=== PATIENT | male | born 1970 ===

== ENCOUNTER 2019-05-12 07:41 | Observation (INO) | payer OTHER ==
[2019-05-12] VITALS (13 sets, daily range): BP systolic 125–161; BP diastolic 78–111
[~2019-05-12] VITALS: Ht 175.3 cm; Wt 83.9 kg
[~2019-05-12 07:41] MED LIST: Chloraseptic Spray 20mL Bottle ORAL PRN; Dexamethasone 20mg/5ml IVP SCH; NKM; ceFAZolin sod 1 GM in NS 55 ML IVPB ONE
[2019-05-12] MEDS ORDERED: Hydromorphone 0.5mg/0.5ml inj SUBQ PRN (08:30)
[2019-05-12] MEDS ORDERED: Morphine Sulfate 2mg/ml Inj(IV/IM USE ONLY) IM PRN (08:30)
[2019-05-12] MEDS ORDERED: HYDROcodone/Acetamin 5/325 tab ORAL PRN ×2 (08:30→09:15)
[2019-05-12] MEDS ORDERED: LR 1000ml 1,000 ML IVLG SCH (09:01)
--- NOTE | 2019-05-12 09:04 | Anethesia Preoperative Eval ---
Anesthesia Pre-op PMH/ROS General Date of Evaluation: May 12, 2019 Time of Evaluation: 10:13 Anesthesiologist: Ron ASA Score: ASA 2 Mallampati Score Class I : Soft palate, uvula, fauces, pillars visible Class II: Soft palate, uvula, fauces visible Class III: Soft palate, base of uvula visible Class IV: Only hard plate visible Mallampati Classification: Class II Surgeon: Marcia Diagnosis: Neck Pain Surgical Procedure: ACDF C6-7 Anesthesia History: none Family History: no anesthesia problems Allergies: Uncoded Allergies: eggplant (Allergy, Intermediate, "eyes gets watery and red", 05/12/19) Medications: see eMAR Patient NPO?: Yes Past Medical History Cardiovascular: Reports: HTN Anesthesia Pre-op Phys. Exam Physician Exam Last Vital Signs Date Time Temp Pulse Resp B/P (MAP) Pulse Ox O2 Delivery O2 Flow Rate FiO2 05/12/19 08:36 Room Air 05/12/19 08:16 97.8 89 18 150/88 99 Constitutional: NAD Neurologic: CN 2-12 intact Cardiovascular: RRR Respiratory: CTA Gastrointestinal: S/NT/ND Airway Exam Mallampati Score: Class II MO: full ROM: limited Teeth: missing, intact Anesthesia Pre-op A/P Risk Assessment & Plan Assessment: ASA 2 Plan: GA, SED, GlideScope Go Status Change Before Surgery: No Pre-Antibiotics Dru grams Ancef IV Given Within 1 Hr of Incision: Yes Time Given: 10:41 Junior Velasquez MD May 12, 2019 09:04
--- NOTE | 2019-05-12 09:05 | Immediate Post-Op Evaluation ---
Immediate Post-Op Evalulation Immediate Post-Op Evalulation Procedure: ACDF C6-7 Date of Evaluation: May 12, 2019 Time of Evaluation: 13:35 IV Fluids: 900 LR Blood Products: 0 Estimated Blood Loss: 50 Urinary Output: 0 Blood Pressure Systolic: 158 Blood Pressure Diastolic: 102 Pulse Rate: 82 Respiratory Rate: 16 O2 Sat by Pulse Oximetry: 100 Temperature (Fahrenheit): 98.2 Pain Score (1-10): 2 Nausea: No Vomiting: No Complications 0 Patient Status: awake, reacts, patent, extubated, none Hydration Status: adequate Dru grams Ancef IV Given Within 1 Hr of Incision: Yes Time Given: 10:41 Junior Velasquez MD May 12, 2019 09:05
[2019-05-12] MEDS ORDERED: Acetaminophen (Non formulary) 100 ML IV ONE (09:15)
[2019-05-12] MEDS ORDERED: DiphenhydrAMINE 50mg/ml Inj IVP PRN (09:15)
[2019-05-12] MEDS ORDERED: Hydromorphone 0.5mg/0.5ml inj IVP PRN (09:15)
[2019-05-12] MEDS ORDERED: Meperidine 50mg/ml Inj(FOR RIGORS ONLY) IVP PRN (09:15)
[2019-05-12] MEDS ORDERED: Midazolam 2mg/2ml Inj IVP PRN (09:15)
[2019-05-12] MEDS ORDERED: Atropine Sulfate 0.4mg/ml inj IVP PRN (09:15)
[2019-05-12] MEDS ORDERED: fentaNYL 100 mcg/2 mL IV PRN (09:15)
[2019-05-12] MEDS ORDERED: Ketorolac 30mg Inj IV PRN ×2 (09:15)
[2019-05-12] MEDS ORDERED: oxyCODONE HCL/Acetaminophen 5/325mg ORAL PRN (09:15)
[2019-05-12] MEDS ORDERED: LORazepam Inj 2mg/ml 1ml IV PRN (09:15)
[2019-05-12] MEDS ORDERED: HYDROcodone/Acetamin 7.5/325 tab ORAL PRN (09:15)
[2019-05-12] MEDS ORDERED: fentaNYL 100 mcg/2 mL IV ONE ×2 (09:18→11:25)
[2019-05-12] MEDS ORDERED: Propofol 1,000mg/ 100ml btl IV ONE (09:30)
[2019-05-12] MEDS ORDERED: Sodium Chloride 10ml vial INJ ONE (09:34)
[2019-05-12] MEDS ORDERED: Dexamethasone 4mg/ml vial ONE (09:34)
[2019-05-12] MEDS ORDERED: Lidocaine 1% MPF 10mg/ml 5ml ONE (09:34)
--- NOTE | 2019-05-12 09:38 | Pre-Procedure Note/Attestation ---
Pre-Procedure Note/Attestation Complete Prior to Procedure Procedure Narrative: ACDF C6-C7 anterior plate C6-C7 Indications for Procedure Pre-Operative Diagnosis: trauma cervical discogenic spondylotic myeloradiculopathy Attestation I attest that I discussed the nature of the procedure; its benefits; risks and complications; and alternatives (and the risks and benefits of such alternatives ), prior to the procedure, with the patient (or the patient's legal sales utility representative). I attest that, if there was a reasonable possibility of needing a blood transfusion, the patient (or the patient's legal sales utility representative) was given the [facility] standardized written summary, pursuant to the [place] Blood Safety Act ([place] Health and Safety Code # 1645, as amended). I attest that I re-evaluated the patient just prior to the surgery and that there has been no change in the patient's H&P, except as documented below: Stef Kennedy MD May 12, 2019 09:38
[2019-05-12] MEDS ORDERED: Lidocaine 1% Plain 30 ml INJ ONE (09:39)
[2019-05-12] MEDS ORDERED: Bacitracin 50000 Units Vial ONE (09:59)
[2019-05-12] MEDS ORDERED: Gelfoam Size TOPIC ONE (09:59)
[2019-05-12] MEDS ORDERED: Thrombin 5000 units TOPIC ONE (09:59)
[2019-05-12] MEDS ORDERED: Neostigmine 1mg/ml 10ml Inj ONE (10:00)
[2019-05-12] MEDS ORDERED: Sterile Water Irrig 1000ml IRRIG ONE (10:00)
[2019-05-12] MEDS ORDERED: LR 1000ml ONE (10:00)
[2019-05-12] MEDS ORDERED: Rocuronium Bromide 50mg/5ml Inj IV ONE (10:05)
[2019-05-12] MEDS ORDERED: NS Irrig 1000ml IRRIG ONE (10:30)
[2019-05-12] MEDS ORDERED: Glycopyrrolate 0.2mg/ml 1ml Vial ONE (12:35)
[2019-05-12] MEDS ORDERED: Naloxone 0.4mg/ml Inj IVP PRN (13:15)
[2019-05-12] MEDS ORDERED: Chloraseptic Spray 20mL Bottle ORAL ONE (15:00)
[2019-05-12] MEDS ORDERED: D5 1/2NS 1,000 ML IV SCH (15:04)
--- NOTE | 2019-05-12 15:06 | NUR ---
NURSE NOTES: Patient is alert and oriented. Patient s/p ACDF c6-7. Report received from Julisa Calderon RN. Vital signs stable. Dressing is intact. No reports of pain at the moment. Neuro check done. Side rails upx2, bed is locked, and call light is within reach. Will continue to monitor.
--- NOTE | 2019-05-12 15:50 | Diagnostic Imaging Report ---
INDICATION: Pain, intraoperative TECHNIQUE: Intraoperative imaging Fluoroscopy time: 15.7 seconds Total dose: [id number] mGym2 Total number of images: 4 COMPARISON: None FINDINGS: Lateral localizer image demonstrates surgical tool projected at the anterior aspect of the C6-7 disc. Subsequent images demonstrate anterior fusion hardware and disc spacer at C6-7. IMPRESSION: Intraoperative imaging, as described
[2019-05-12] MEDS ORDERED: ceFAZolin sod 1 GM in D5W 55 ML IV SCH (18:30)
--- NOTE | 2019-05-12 18:54 | NUR ---
NURSE NOTES: Patient voided and ambulated down hallway with RN.
--- NOTE | 2019-05-12 19:31 | NUR ---
NURSE NOTES: Received report & pt from JOHN Castrejon. Pt lying in bed, a&ox4, in room air. No s/s of acute distress & no c/o pain. Surgical dressing C/D/I. Pt to be D/C'd home tonight. Pt about to get ready & dressud up. D/C paperwork already signed & given by AM shift. IV already D/C'd by AM shift. Will assist in dressing pt/
--- NOTE | 2019-05-12 19:35 | NUR ---
NURSE NOTES: Patient has discharge to Home. Discharge instructions given to patient. IV removed. Patient stable. Hand off given to JOHN Rodriguez
[2019-05-12] MEDS ORDERED: Tubing IV Secondary IV ONE (19:39)
[2019-05-12] MEDS ORDERED: D5 1/2NS 1000ml IV ONE (19:39)
--- NOTE | 2019-05-12 19:39 | NUR ---
DISCHARGE NOTE: Pt D/C'd to home as ordered by MD. Belongings checked & accounted for. Accompanied by family member & staff downstairs via wheelchair; going via private vehicle. No pain. a&ox4.
--- NOTE | 2019-05-13 11:54 | Operative Note - Dictated ---
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 PROCEDURE: 1. ACDF C6-C7 with anterior internal plate fixation. 2. Intraoperative fluoroscopy interpreted by surgeon. 3. SSEP monitoring. 4. High-power microscopic dissection. SURGEON: Stef Kennedy, PhD, M.Pasquale. CHIEF SCHOOL FINANCE OFFICER: SAMY Moyer. ANESTHESIOLOGIST: Junior Velasquez M.D. ANESTHESIA: General with intubation. ESTIMATED BLOOD LOSS: Minimal. COMPLICATIONS: None. POSTOPERATIVE CONDITION: Good/stable. PROCEDURE IN DETAIL: The patient was brought to the operating room and in the supine position, general anesthesia intubation was induced. IV antibiotics and IV Decadron were administered 30 minutes prior to incision time. After appropriate positioning, decision for incision level placement was undertaken with fluoroscopic guidance. Level on the skin was done with a sterile skin marker marked appropriately left transverse with subsequent sterile prep and draped free in usual sterile fashion. A transverse incision as marked was sharply placed through dermis and epidermis. Electrocautery dissection was carried through the subcutaneous tissue to the level of the platysmas muscle, was identified, isolated, and transected in line with the incision. Blunt dissection was carried medial to the left sternocleidomastoid muscle, carotid sheath through the deep cervical and pretracheal fascia to the midline between the right and left longus colli muscles. Large anterior osteophyte identified. Needle placed into the disc space with the needle bent at 90 degree angle so as to avoid penetration greater than 3 mm. Cross-table imaging obtained under fluoroscopic guidance demonstrating a correct level for incision placement. Level marked. Needle removed. Retractors placed. A large anterior osteophyte resected under high-power magnification with [place] bur dissection. Discectomy to but not through the posterior longitudinal ligament was undertaken. removal of the cartilaginous caps undertaken under high-power magnification, Midas [place] bur dissection. Subchondral bone integrity maintained. Resection to posterior longitudinal ligament. The sequestered fragment right of midline posterior to the posterior longitudinal ligament identified, isolated, and then removed. No CSF leak noted. No dural tears. SSEP monitoring. Posterior osteophyte resected under high-power magnification. Wound irrigated with antibiotic-containing saline. Appropriate trials utilized followed with the appropriate titanium imprinted graft containing osteopromotive material with local autograft. Tamped into position. Excellent positioning. AP and lateral fluoroscopic images obtained demonstrating appropriate alignment and positioning. Anterior internal plate fixation in a compressive fashion undertaken with bilateral screws C6, bilateral screws C7 after 10 pounds of traction on the neck was removed. Inspection revealed no obvious excoriation or laceration of vital structures. Wound was copiously irrigated with antibiotic-containing saline. FloSeal applied. Reapproximation of platysmas muscle, subcutaneous tissue followed with Dermabond. Sterile bandage applied, maintained in place with tape. The patient awakened and extubated in the operating room, transported to postop recovery in good stable condition. Stef Kennedy M.D. DR: STUART JOB#: [id number] CC:
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
--- NOTE | 2019-05-20 08:51 | Discharge Summary ---
Discharge Summary Hospital Course Date of Admission May 12, 2019 at 14:59 Date of Discharge May 12, 2019 at 19:40 Admitting Diagnosis Posttraumatic cervical herniated nucleus pulposus with radiculopathy Reason for Hospitalization: elective surgery KEMAR Angel is a 48 year old male who was admitted on May 12, 2019 at 14: 59 for Cervical Radiculopathy. Patient was admitted as observation for elective surgery. Consultations dr Rodriguez -pain specialist Procedures s/p 05/12/[address] Kennedy 1. ACDF C6-C7 with anterior internal plate fixation. 2. Intraoperative fluoroscopy interpreted by surgeon. 3. SSEP monitoring. 4. High-power microscopic dissection. Hospital Course status post surgery course of recovery uneventful initially IV fluids s/p perioperative antibiotic and steroid neurovascular status closely monitored and remained stable incision with dressing ; clean , dry and intact pain management addressed pain specialist followed; pain controlled remained hemodynamically stable ambulated DVT prophylaxis with SCD provided incentive spirometry encouraged while in the bed fall precautions maintained; safe for ambulation tolerated diet , IV fluids discontinued GI prophylaxis provided antiemetics were on board as needed voided freely patient was stable for discharge discharge instructions provided patient already had a supply of hydrocodone/previously filled in - for home use follow up with surgeon in the office as advise by surgeon FINAL DIAGNOSES 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 0 ., 0 Refills (This prescription has been renewed) Discharge Condition Upon Discharge: stable Discharge Disposition Patient was discharged home Discharge Instructions Discharge Instructions Special Instructions I have been assigned to complete a D/C Summary on this account. I was not involved in the patient management Linda Holt NP May 20, 2019 08:51
== END 2019-05-12 19:40 | disposition home or self-care (01) ==
LOC: SUR 07:41 → 3E 14:59
DX: M50.123 Cervical disc disorder at C6-C7 level with radiculopathy (principal); I10 Essential (primary) hypertension
CPT/HCPCS: 22551; 36415; 72040; 76000; 86850; 86900; 86901; C1713; J0690; J1100; J1170; J1885; J2001; J2250; J2405; J2704; J2710; J3010; 94003; 94150